=== PATIENT | female | born 1980 | race Caucasian/White ===

== ENCOUNTER 2018-01-31 15:11 | Inpatient (IN) | payer OTHER ==
[~2018-01-31] VITALS: Ht 165.1 cm; Wt 78.0 kg
[2018-01-31] VITALS (25 sets, daily range): BP systolic 84–135; BP diastolic 56–88; PULSE 69–91; RESP 18; TEMP 97.6–98; O2SAT 98
[~2018-01-31 15:11] MED LIST: SYNT25TA PO; VALT500T OR; ZOFR4TAB3 PO
[2018-01-31] MEDS ORDERED: MEASLES, MUMPS, RUBELLA VACCINE 0.5 ML VIAL SQ ONE (16:00)
[2018-01-31] MEDS ORDERED: LIDOCAINE HCL 1% 50 ML VIAL I-DERMAL PRN (17:00)
[2018-01-31] MEDS ORDERED: MINERAL OIL 10 ML VIAL TOPICAL PRN (17:00)
[2018-01-31] MEDS ORDERED: LACTATED RINGER'S 1000 ML BOLUS IV PRN (17:00)
[2018-01-31] MEDS: LACTATED RINGER'S 1000 ML IV SCH (17:00)
[2018-01-31] MEDS ORDERED: LIDOCAINE HCL 1% 50 ML VIAL INFIL PRN (17:00)
[2018-01-31] MEDS ORDERED: ONDANSETRON HCL 4 MG/2 ML VIAL IV PUSH PRN (17:00)
[2018-01-31] MEDS ORDERED: CITRIC ACID-SODIUM CITRATE LIQ 30 ML UDC PO SCH (17:00)
[2018-01-31] MEDS ORDERED: OXYTOCIN 30 UNITS 500ML PREMIX IV ONE (17:00)
[2018-01-31] MEDS ORDERED: NS 1000 ML IV PRN (17:00)
[2018-01-31] MEDS ORDERED: NS 500 ML BOLUS IV PRN (17:00)
[2018-01-31] MEDS ORDERED: OXYTOCIN 30 UNITS/NS 500ML PREMIX IV PRN (18:00)
[2018-01-31 18:41] LABS: AUTOMATED NEUTROPHIL # 8.3 TH/MM3 (1.8-7.7); BASOPHIL % 0.3 % (0.0-2.0); EOSINOPHIL % 0.3 % (0.0-4.0); HEMATOCRIT 34.3 % (35.0-46.0); HEMOGLOBIN 11.8 GM/DL (11.6-15.3); LYMPH % 16.1 % (9.0-44.0); LYMPHOCYTE # 1.8 TH/MM3 (1.0-4.8); MEAN CORPUSCULAR HEMOGLOBIN 33.9 PG (27.0-34.0); MEAN CORPUSCULAR HGB CONC 34.5 % (32.0-36.0); MEAN PLATELET VOLUME 10.6 FL (7.0-11.0); MONO % 8.5 % (0.0-8.0); MONOCYTE # 0.9 TH/MM3 (0-0.9); NEUT % 74.8 % (16.0-70.0); PLATELET COUNT 248 TH/MM3 (150-450); RED CELL DISTRIBUTION WIDTH 14.5 % (11.6-17.2); WHITE BLOOD COUNT 11.1 TH/MM3 (4.0-11.0)
[2018-01-31 18:58] LABS: AMORPHOUS SEDIMENT, URINE MOD; BILIRUBIN, URINE NEG (NEG); BLOOD, URINE SMALL (NEG); GLUCOSE,URINE NEG (NEG); KETONE, URINE NEG (NEG); MUCUS URINE FEW /lpf (OCC); NITRITE,URINE NEG (NEG); PH, URINE 5.5 (5.0-8.5); SQUAMOUS EPITHELIAL CELL URINE 1 /hpf (0-5); URINE COLOR YELLOW (YELLW/STRAW); URINE LEUKOCYTE ESTERASE NEG (NEG)
[2018-01-31] MEDS ORDERED: fentaNYL 2MCG-BUPIV 0.125% INJ 100 ML ONE (19:09)
[2018-01-31] MEDS ORDERED: LIDOCAINE 2%/EPINEPHrine PF 1:200,000 20ML SDV ONE (19:14)
[2018-01-31] MEDS ORDERED: LIDOCAINE HCL 1% PF 5 ML AMPULE ONE (19:14)
[2018-01-31] MEDS ORDERED: ePHEDrine/NS 25 MG/5 ML SYRINGE ONE (19:17)
[2018-01-31] MEDS ORDERED: ePHEDrine/NS 25 MG/5 ML SYRINGE IV PUSH PRN (20:15)
[2018-01-31] MEDS ORDERED: NO SYSTEM NARCOTICS PRN (20:15)
[2018-01-31] MEDS ORDERED: DO NOT ADMINISTER ANTICOAGULANTS PRN (20:15)
[2018-01-31] MEDS ORDERED: fentaNYL 2MCG-BUPIV 0.125% 100 ML EPIDURAL PRN (20:15)
[2018-01-31] MEDS ORDERED: ALUMINUM/MAGNESIUM/SIMETH 30 ML CUP PO PRN (20:30)
[2018-01-31] MEDS ORDERED: SODIUM CHLORIDE 0.9% FLUSH 10 ML FLUSH IV FLUSH PRN (20:30)
[2018-01-31] MEDS ORDERED: WITCH HAZEL 50%/GLYCERIN 12.5% 40 PAD JAR TOPICAL PRN (20:30)
[2018-01-31] MEDS ORDERED: BENZOCAINE 20% TOPICAL SPRAY 60 ML CAN TOPICAL PRN (20:30)
[2018-01-31] MEDS ORDERED: DOCUSATE SODIUM 50 MG/SENNA 8.6 MG TAB PO PRN (20:30)
[2018-01-31] MEDS ORDERED: OXYTOCIN 30 UNITS-500ML PREMIX 500 ML IV SCH (20:30)
[2018-01-31] MEDS ORDERED: ONDANSETRON ODT 4 MG TAB PO PRN (20:30)
[2018-01-31] MEDS ORDERED: ZOLPIDEM TARTRATE 5 MG TAB PO PRN (20:30)
[2018-01-31] MEDS ORDERED: oxyCODONE/ACETAMINOPHEN 5 MG/325 MG TAB PO PRN ×2 (20:30)
[2018-01-31] MEDS ORDERED: SODIUM CHLORIDE 0.9% FLUSH 10 ML FLUSH IV FLUSH SCH (21:00)
[2018-01-31] MEDS: IBUPROFEN 800 MG TAB PO PRN (23:24)
[2018-02-01] MEDS: LEVOTHYROXINE SODIUM 25 MCG TAB PO SCH (05:49)
[2018-02-01 05:57] LABS: AUTOMATED NEUTROPHIL # 8.7 TH/MM3 (1.8-7.7); BASOPHIL % 0.3 % (0.0-2.0); EOSINOPHIL # 0.1 TH/MM3 (0-0.4); EOSINOPHIL % 0.4 % (0.0-4.0); HEMATOCRIT 29.7 % (35.0-46.0); HEMOGLOBIN 10.5 GM/DL (11.6-15.3); LYMPH % 19.1 % (9.0-44.0); LYMPHOCYTE # 2.3 TH/MM3 (1.0-4.8); MEAN CELL VOLUME 97.7 FL (80.0-100.0); MEAN CORPUSCULAR HEMOGLOBIN 34.5 PG (27.0-34.0); MEAN CORPUSCULAR HGB CONC 35.3 % (32.0-36.0); MEAN PLATELET VOLUME 9.6 FL (7.0-11.0); MONO % 8.3 % (0.0-8.0); NEUT % 71.9 % (16.0-70.0); PLATELET COUNT 166 TH/MM3 (150-450); RED BLOOD COUNT 3.04 MIL/MM3 (4.00-5.30); RED CELL DISTRIBUTION WIDTH 14.2 % (11.6-17.2); WHITE BLOOD COUNT 12.1 TH/MM3 (4.0-11.0)
[2018-02-01] MEDS: IBUPROFEN 800 MG TAB PO PRN ×2 (07:48→17:30)
[2018-02-01 07:50] VITALS: BP 123/78; PULSE 68; RESP 18; TEMP 97.6; O2SAT 100
--- NOTE | 2018-02-01 08:18 | MH ---
cc: Jey Rondon MD DATE OF ADMISSION: 01/31/2018 ADMISSION DIAGNOSES: 1. Term . 2. Advanced maternal age. 3. Hypothyroid. HISTORY OF PRESENT ILLNESS: The patient is a 37-year-old white female, para 2-0-1-2, with an EDC of 02/03/2018 by early ultrasound. Her course was benign. She had normal panoramic testing. GBS is negative. She is now admitted for induction of labor due to term status, favorable cervix and desire for delivery. PAST MEDICAL HISTORY: PREVIOUS SURGERY: A D and C for spontaneous AB in 2013. MEDICATIONS: 1. Synthroid. 2. Vitamins. ALLERGIES: NONE. TRANSFUSIONS: None. SERIOUS MEDICAL ILLNESS: History of hypothyroid 2013, elevated prolactin 2010. SOCIAL HISTORY: She is , homemaker. Alcohol, tobacco and drugs: None. FAMILY HISTORY: Noncontributory. PHYSICAL EXAMINATION: GENERAL: Well-developed white female. VITAL SIGNS: Stable. HEENT: Normal. CHEST: Clear. HEART: Regular rate. BREASTS: Symmetrical. ABDOMEN: Benign, gravid. EFW of 3600 grams. PELVIC EXAM: Cervix is 2-3, 70, vertex intact, -1. GBS negative. ASSESSMENT: As above. PLAN: She is now admitted for induction of labor. While in the office, I explained the procedures, the risks, benefits and complications explained and accepted. MD JOSSELYN Yeh/SB , 02:05 PM , 02:28 PM
[2018-02-01] MEDS: LACTATED RINGER'S 1000 ML IV SCH (09:00)
[2018-02-01] MEDS: ACETAMINOPHEN 325 MG TAB PO PRN ×2 (13:05→21:01)
[2018-02-01 15:00] VITALS: BP 110/67; PULSE 76; RESP 18; TEMP 97.7; O2SAT 99
[2018-02-01 20:00] VITALS: BP 116/77; PULSE 77; RESP 18; TEMP 97.8
[2018-02-01 21:22] VITALS: BP 116/77; PULSE 77; RESP 18; TEMP 97.8
[2018-02-01] MEDS ORDERED: DIPHTH/TETANUS/ACEL PERTUSSIS (BOOSTER) 0.5 ML VIAL/PFS IM ONE (22:15)
[2018-02-02] MEDS: ACETAMINOPHEN 325 MG TAB PO PRN ×3 (00:53→14:45)
[2018-02-02] MEDS: IBUPROFEN 800 MG TAB PO PRN ×2 (00:53→08:00)
[2018-02-02] MEDS: LEVOTHYROXINE SODIUM 25 MCG TAB PO SCH (05:47)
--- NOTE | 2018-02-02 08:26 | HHI.DCPOC ---
Discharge Care Plan Report Symptoms to Your Doctor -Temperature above 100.5 degrees -Redness, of incision or excessive or foul smelling drainage -Unusual pain or calf pain -Increased vaginal bleeding -Painful or difficulty urinating -Feelings of extreme sadness or anxiety after 2 weeks Goals to Promote Your Health * To prevent worsening of your condition and complications * To maintain your health at the optimal level Directions to Meet Your Goals Take your medications as prescribed Follow your dietary instruction Follow activity as directed Ensure plenty of rest for recovery Drink fluids for hydration Keep your appointments as scheduled Take your immunizations and boosters as scheduled If your symptoms worsen call your PCP, if no PCP go to Urgent Care Center or Emergency Room Smoking is Dangerous to Your Health. Avoid second hand smoke Call the 24-hour crisis hotline for domestic abuse at Jey Rondon MD February 02, 2018 08:26
--- NOTE | 2018-02-02 08:47 | MD ---
cc: Jey Rondon MD DATE OF DISCHARGE: 02/02/2018 ADMITTING DIAGNOSES: 1. Term . 2. Advanced maternal age 37. DISCHARGE DIAGNOSIS: 1. Term . 2. Advanced maternal age 37. 3. Delivered. HISTORY OF PRESENT ILLNESS: The patient is a 37-year-old white female, para 2-0-1-2, with an EDC of 02/03/2018 by early ultrasound. Her course was benign. Her Panorama testing was normal. Ultrasounds showed appropriate growth. HOSPITAL COURSE: She was admitted for induction of labor due to term status, history of rapid deliveries for controlled delivery. She was admitted on the evening of 01/31/2018, received Pitocin induction, epidural anesthesia and rapidly progressed to a spontaneous vaginal delivery over a small midline episiotomy of a viable vigorous female, Apgars were 8 and 9. did well. Discharged home in excellent condition on 02/02/2018. Advised NPV, light activity, return to see me in 6 weeks. She will take her routine thyroid medication as advised at home and OTC Motrin for pain relief. She will call for abnormal pain, bleeding, temperature, signs of infection or depression. The baby was name Anthony Escobedo. She received RhoGAM on 02/01/2018. Jey Rondon MD JAW/DL , 08:32 AM , 08:46 AM
== END 2018-02-02 16:41 | disposition home or self-care (01) | DRG 775 ==
LOC: H2EA 15:11 → H1EA 23:18
PROVIDERS: ADMIT Obstetrics & Gynecology; ATTEND Obstetrics & Gynecology
PROC: 10E0XZZ Delivery of Products of Conception, External Approach (ICD-10-PCS; principal; 2018-01-31)
PROC: 3E033VJ Introduction of Other Hormone into Peripheral Vein, Percutaneous Approach (ICD-10-PCS; 2018-01-31)
PROC: 0W8NXZZ Division of Female Perineum, External Approach (ICD-10-PCS; 2018-01-31)
PROC: 00HU33Z Insertion of Infusion Device into Spinal Canal, Percutaneous Approach (ICD-10-PCS; 2018-01-31)
PROC: 3E0R3BZ Introduction of Anesthetic Agent into Spinal Canal, Percutaneous Approach (ICD-10-PCS; 2018-01-31)
DX: O99.284 Endocrine, nutritional and metabolic diseases complicating childbirth (principal); E03.9 Hypothyroidism, unspecified; Z3A.00 Weeks of gestation of pregnancy not specified; Z37.0 Single live birth
CPT/HCPCS: 59025; 80307; 81001; 85025; 85461; 86850; 86900; 86901; 87491; 87591; 90384; 90715; G0481; J2590; J2790; J7120